=== PATIENT | female | born 1965 | race Two or more races ===

== ENCOUNTER 2025-02-02 05:58 | Day surgery (SDC) | payer OTHER ==
[2025-02-02] MEDS ORDERED: MIDAZOLAM HCL 2 MG/2 ML VIAL IV ONE (09:45)
[2025-02-02] MEDS ORDERED: fentaNYL CITRATE 50 MCG/ML AMPUL IV PUSH ONE (09:45)
[2025-02-02] MEDS ORDERED: DIPHENHYDRAMINE HCL 50 MG/ML VIAL 1ML IV ONE (09:45)
== END 2025-02-02 10:55 | disposition home or self-care (01) ==
LOC: AMB-ENDOS 05:58
PROVIDERS: ATTEND Internal Medicine
DX: K21.9 Gastro-esophageal reflux disease without esophagitis (principal); R10.13 Epigastric pain; K29.60 Other gastritis without bleeding; K29.80 Duodenitis without bleeding; I85.00 Esophageal varices without bleeding